=== PATIENT | male | born 1965 | race African-American/Black ===

== ENCOUNTER 2020-05-12 15:18 | Emergency (ER) | payer SELFPAY ==
[~2020-05-12] VITALS: Ht 167.6 cm; Wt 84.1 kg
[~2020-05-12 15:18] MED LIST: AMOXICILLIN500 MG PO; NAPROSYN500 MG PO
[2020-05-12 16:11] LABS: HEMATOCRIT 36.6 % (39.0-50.0); HEMOGLOBIN 11.4 g/dl (14.0-18.0); MEAN CELL VOLUME 76.7 fL CALC (80.0-100.0); MEAN CORPUSCULAR HGB 23.9 pG CALC (26.0-32.0); MEAN CORPUSCULAR HGB CONC 31.1 g/dL CAL (32.0-36.0); NEUT# 0.44 thou/uL (1.82-7.42); RED BLOOD COUNT 4.77 mill/uL (4.70-6.10); RED CELL DISTRI WIDTH 15.9 % (11.5-15.5)
[2020-05-12 16:24] LABS: ALBUMIN 3.6 g/dL (3.2-5.0); ALKALINE PHOSPHATASE 233 u/l (38-126); ANION GAP 10 (6-22 (CALC)); BUN 13 mg/dL (9-20); BUN/CREATININE RATIO 27 (12-20 (CALC)); C-REACTIVE PROTEIN 0.6 mg/dL (0-0.9); CARBON DIOXIDE 25 mmol/l (22-30); CHLORIDE 106 mmol/l (95-108); CREATININE 0.5 mg/dL (0.7-1.3); GFR > 60 ML/MIN (>=60 (CALC)); GFR FOR AFR.AMER. > 60 ML/MIN (>=60 (CALC)); LIPASE 360 u/l (23-300); MAGNESIUM 1.7 mg/dL (1.6-2.3); SODIUM 137 mmol/l (137-146); TOTAL PROTEIN 7.1 g/dL (6.3-8.2)
[2020-05-12 16:27] LABS: BILIRUBIN, TOTAL 0.5 mg/dL (0.0-1.4); SGOT/AST 111 u/l (17-59)
[2020-05-12 17:00] VITALS: BP 135/67
== END 2020-05-12 17:08 | disposition left against medical advice (07) | DRG 313 ==
LOC: ED 15:18
PROVIDERS: Family Medicine
DX: R07.9 Chest pain, unspecified (principal); R52 Pain, unspecified; Z20.828 Contact with and (suspected) exposure to other viral communicable diseases; Z91.19 Patient's noncompliance with other medical treatment and regimen

== ENCOUNTER 2020-05-28 03:16 | Emergency (ER) | payer SELFPAY ==
[~2020-05-28] VITALS: Ht 167.6 cm; Wt 78.0 kg
[2020-05-28 03:38] VITALS: BP 129/71
== END 2020-05-28 03:45 | disposition left against medical advice (07) | DRG 951 ==
LOC: ED 03:16 → LWOBS 03:45 → ED 03:45
DX: Z91.19 Patient's noncompliance with other medical treatment and regimen (principal)